=== PATIENT | female | born 1980 | race Caucasian/White ===

== ENCOUNTER → 2022-09-07 16:19 | Outpatient (CLI) | payer OTHER, SELFPAY ==
--- NOTE | 2022-09-07 16:21 | DI.US.S_ITS ---
PROCEDURE: US PELVIC COMPLETE INDICATIONS: PAIN, 8 weeks TECHNIQUE: Real-time scanning was performed of the pelvic organs, with image documentation. Additional endovaginal scanning was necessary due to incomplete visualization of the adnexal and endometrial structures by transabdominal scanning. COMPARISON: [facility], US, PELVIC COMPLETE, 05/25/2016, 11:07. FINDINGS: Uterus: 8.6 x 5.6 x 4.3 cm. The endometrium measures 11 mm. Echotexture is overall homogeneous. Delivery 8 weeks ago. No significant hypervascularity. Small amount of fluid is seen in the fundal endometrium measuring 2 mm. Ovaries: Right ovary measures 9 cc. Left ovary measures 8 cc. Color and spectral flows are present. Other: No pathologic fluid. IMPRESSION: Patient is 8 weeks . Small amount of fundal endometrial fluid is present. No significant hypervascularity. No current evidence of ovarian torsion. Dictated by: Travis Donis M.D. on 09/07/2022 at 17:14 Approved by: Travis Donis M.D. on 09/07/2022 at 17:16
[2022-09-07 17:30] LABS: Hematocrit 38.4 % (36-46); Hemoglobin 13.2 g/dL (12.0-16.0); Mean Corpuscular HGB Conc 34.3 % (30-36); Mean Corpuscular Hemoglobin 30.9 PG (26-34); Mean Corpuscular Volume 90.1 fL (80-100); Platelet Count 216 X10^3/uL (150-400); Red Blood Cell Count 4.27 X10^6/uL (4.0-5.2); Red Cell Distribution Width 13.3 % (11.6-14.8); White Blood Cell Count 6.3 X10^3/uL (4.5-11.0)
[2022-09-07 17:59] LABS: Appearance Urine UA CLEAR; Bilirubin Urine UA NEGATIVE (NEGATIVE); Color Urine UA YELLOW; Glucose Urine UA NEGATIVE (Negative); Ketones Urine UA NEGATIVE (NEGATIVE); Leukocyte Esterase Urine UA 1+ (NEGATIVE); Nitrite Urine UA NEGATIVE (Negative); Occult Blood Urine UA NEGATIVE (Negative); Protein Urine UA NEGATIVE (Negative); Specific Gravity Urine UA 1.015 (1.000-1.035); Urobilinogen Urine UA 0.2 E.U./dL (0.2)
[2022-09-07 18:38] LABS: pH Urine UA 6.5 (4.5-8.0)
[2022-09-07 18:46] LABS: Bacteria Urine Moderate (10-30); Culture Indicated Urine Specimen Cultured; RBC Urine 0-1/HPF (0-5/HPF); Squamous Epithelial Cell Urine >30 /HPF (0-5/HPF); WBC Urine 1-5/HPF (0-5/HPF)
== END ==
PROVIDERS: Family Provider Family Medicine; Referring Provider Obstetrics & Gynecology; Visit Provider Obstetrics & Gynecology
DX: O90.89 Other complications of the puerperium, not elsewhere classified (principal); R10.2 Pelvic and perineal pain; O86.20 Urinary tract infection following delivery, unspecified; N39.0 Urinary tract infection, site not specified
CPT/HCPCS: 36415; 76830; 76856; 81003; 81015; 85027; 87086; 93975